=== PATIENT | female | born 1950 | race Caucasian/White ===

== ENCOUNTER → 2017-01-23 | Outpatient (CLI) | payer OTHER ==
[~2017-01-23] VITALS: Ht 162.6 cm; Wt 74.8 kg
[~2017-01-23] MED LIST: ASPIR-LOW81 MG PO; FOSAMAX 70 MG T70 MG PO; HYDROCODON-ACE1 EAC5 PO; LIPITOR 20 MG T20 M1 PO; LISINOPRIL5 MG PO; MYCOPHENOLATE500 MG PO; PREDNISONE 5 MG5 M1 PO; TACROLIMUS1 MG PO; TOPROL XL25 MG PO; XANAX 0.5 MG0.5 MG PO; ZOLOFT50 MG PO
--- NOTE | ~2017-01-23 | HPC ---
[facility] [place] [address] PAIN MANAGEMENT CONSULTATION Name: LEROY PHAM Marcela [facility] #: [facility] [id number] Admission: 01/23/17 Attend Phys: Darrel Lagos, DO Discharge: Date of : 50 Report #: [id number] THIS REPORT FOR: //name// CC: Dr. Rosalie Lagos The patient is a 66-year-old female seen in consultation at the request of Dr. Marmolejo for evaluation of pain in the low back, right buttock and leg, and has been present for the past 2-3 months. She denies specific antecedent trauma and/or overuse. Notes pain does seem to be exacerbated with increased physical activity. She has been helping her friend closed down his office, doing a lot of scanning and desk work involving rotation and modest lifting. She had similar symptoms in the past, had epidural injections x 2 in 2010 with good efficacy. Currently, notes little paresthesias in the right leg, no weakness, saddle anesthesia nor bowel or bladder continence changes. The patient cannot take nonsteroidal anti-inflammatory medications due to chronic renal failure, status post kidney transplant. She notes the pain is exacerbated with twisting and/or standing. Gets some relief with pain medications and ice. Takes rare hydrocodone. Has been doing physical therapy exercises and walking. Pain is continuous, shooting and stabbing, rates it at 7-10 on a visual analog scale. REVIEW OF SYSTEMS: Complete review of systems attached to chart and gone over with the patient. She is , does not smoke or drink alcohol to excess. History of hypertension, treated with metoprolol and lisinopril; idiopathic complete renal failure, status post renal transplant in 2003, has a kidney in the left lower abdominal quadrant. Dyslipidemia for which she takes statin type medication. Takes multiple agents for antirejection including prednisone. Takes rare Xanax and zolpidem for chronic anxiety. Tragically, the patient lost a son in a motor vehicle accident in 1994. She has worked diligently with [employer] for a number of years subsequent. The patient is retired. She notes pain impact score is fairly high, averaging about 39/70. PHYSICAL EXAMINATION: Shows a 5 feet 4 inches, 74 kilogram female, BMI is 28.3 kilograms per meter squared. Vital signs are stable. Cranial nerves 2-12 are grossly intact. Pupils equal, reactive to light and accommodation. Extraocular muscles are intact. Thyroid is unremarkable. Cervical range of motion is full. Upper extremity strength is preserved. Heart is regular and rhythmical without murmur. Lungs are clear to auscultation. Abdomen shows a modestly endomorphic build. Rises from chair using armrest, does have an antalgic gait. Lumbar [facility] [address] [place] [address] PAIN MANAGEMENT CONSULTATION Name: ANKITLEROY M Room #: REG Julia Ko#: [id number] Admission: 01/23/17 Attend Phys: Darrel Lagos DO Discharge: Date of : 50 Report #: [id number] flexion is good at 90 degrees. Positive straight leg raise on the right with slight decreased plantar flexion and lower extremity extension strength. Patellar reflex is diminished on the right compared to left. DIAGNOSTIC FINDINGS: Include lumbar spine x-rays from 01/11/2017, noting moderate arthritic changes of the lumbar spine, narrowing at L4-L5. ASSESSMENT: Symptomatic lumbar radiculopathy by clinical exam and history. RECOMMENDATIONS: Epidural injection under fluoroscopy today, nonsteroidal anti-inflammatory medications are contraindicated. Follow up in 3 weeks for reevaluation. Consider repeat epidural injection if indicated clinically. Thank you for allowing me to participate in this patient's care. PROCEDURE: Lumbar epidural injection under fluoroscopy. PROCEDURE NOTE: After both written and informed consent to include risk of spinal cord damage, increased pain, weakness and dural puncture, the patient was taken to the fluoroscopy suite, placed in the prone position. After sterile prep and drape, a skin wheal with lidocaine was raised. A 22-gauge epidural Tuohy needle was inserted in the midline at L5-S1 with good loss to resistance. Negative aspiration for cerebrospinal fluid or blood was noted. Then 1 mL of Omnipaque under biplanar fluoroscopy showed good spread within the epidural space. This was followed with 80 mg of triamcinolone plus 1 mL of 1.5% preservative-free Xylocaine, 0.5 mL Xylocaine was then injected to flush the needle; it was removed. The patient was monitored for an appropriate period of time and discharged in good and stable condition. <ELECTRONICALLY SIGNED> By: Darrel Lagos DO 01/30/17 1401 [id number] Darrel Lagos DO /nt
[2017-01-23 13:45] VITALS: BP 114/76
== END | disposition home or self-care (01) ==
LOC: PAIN 06:28
DX: M54.16 Radiculopathy, lumbar region (principal); I10 Essential (primary) hypertension; Z79.899 Other long term (current) drug therapy; Z94.0 Kidney transplant status; E78.5 Hyperlipidemia, unspecified; F41.9 Anxiety disorder, unspecified; Z90.710 Acquired absence of both cervix and uterus

== ENCOUNTER → 2017-02-13 | Outpatient (CLI) | payer OTHER ==
[~2017-02-13] VITALS: Ht 162.6 cm; Wt 77.1 kg
--- NOTE | ~2017-02-13 | HPC ---
[facility] [address] [address] [place] [address] PAIN MANAGEMENT CONSULTATION Name: LEROY PHAM Marcela Room #: REG [facility] [id number] Admission: 02/13/17 Attend Phys: Darrel Lagos DO Discharge: Date of : 50 Report #: [id number] THIS REPORT FOR: //name// CC: Rosalie Lagos HISTORY OF PRESENT ILLNESS: The patient is a 66-year-old female seen in consultation on 01/23/2017, diagnosed with symptomatic lumbar radiculopathy, comorbidity of chronic renal insufficiency, status post renal transplant, precluding use of nonsteroidal anti-inflammatory medication agents. The patient was given a single epidural injection at consultation, returns to pain clinic today noting 90% improvement of baseline pain, still notes pain in the right low back, buttock, and leg, exacerbated with activity. Dramatic improvement following injection, rates pain at 2 on VAS. Notes, the pain is exacerbated with twisting and getting up, still gets some relief with ice. She stopped taking hydrocodone. PHYSICAL EXAMINATION: Shows a pleasant 66-year-old female, BMI is 29.2 kg/m2. Vital signs are stable as noted in the EMR. Rises from chair using armrest. Diffuse tenderness across the low back, modestly antalgic gait, positive straight leg raise on the right, the symptoms are dramatically improved. ASSESSMENT: Symptomatic lumbar radiculopathy, dramatic improvement following 1 epidural injection. RECOMMENDATION: Repeat epidural injection under fluoroscopy today (L5-S1). I will not make a followup appointment, simply the patient will follow up on as needed basis. Thank you for allowing me to participate in the patient's care. PROCEDURE: Lumbar epidural injection under fluoroscopy. PROCEDURE NOTE: After both written and informed consent to include risk of spinal cord damage, increased pain, weakness and dural puncture, the patient was taken to the fluoroscopy suite, placed in the prone position. After sterile prep and drape, a skin wheal with lidocaine was raised. A 22-gauge epidural Tuohy needle was inserted in the midline at L5-S1 with good loss to resistance. Negative aspiration for cerebrospinal fluid or blood was noted. Then 1 mL of Omnipaque under biplanar fluoroscopy showed good spread within the epidural space. This was followed with 80 mg of triamcinolone plus 1 mL of 1.5% preservative-free Xylocaine, 0.5 mL Xylocaine was then injected to flush the [facility] [address] [place] [address] PAIN MANAGEMENT CONSULTATION Name: CARLOS AMarkLEROY Room #: REG [facility] [id number] Admission: 02/13/17 Attend Phys: Darrel Lagos DO Discharge: Date of : 50 Report #: [id number] needle; it was removed. The patient was monitored for an appropriate period of time and discharged in good and stable condition. <ELECTRONICALLY SIGNED> By: Darrel Lagos DO 02/15/17 0834 1220 1606 Darrel Lagos DO /del
[2017-02-13 10:43] VITALS: BP 145/81
== END | disposition home or self-care (01) ==
LOC: PAIN 06:06
DX: M54.16 Radiculopathy, lumbar region (principal); N18.9 Chronic kidney disease, unspecified; G89.29 Other chronic pain; Z94.0 Kidney transplant status; Z79.891 Long term (current) use of opiate analgesic; Z98.890 Other specified postprocedural states; Z88.6 Allergy status to analgesic agent; Z79.82 Long term (current) use of aspirin; Z79.899 Other long term (current) drug therapy

== ENCOUNTER → 2020-10-27 | Outpatient (CLI) | payer OTHER | LOC: SJCVC 10:33 | PROVIDERS: ATTEND Internal Medicine Cardiovascular Disease | DX: R06.00 Dyspnea, unspecified (principal); E78.00 Pure hypercholesterolemia, unspecified; I73.9 Peripheral vascular disease, unspecified; M19.90 Unspecified osteoarthritis, unspecified site; E78.5 Hyperlipidemia, unspecified; I12.9 Hypertensive chronic kidney disease with stage 1 through stage 4 chronic kidney disease, or unspecified chronic kidney disease; N18.30 Chronic kidney disease, stage 3 unspecified; Z94.0 Kidney transplant status; Z88.8 Allergy status to other drugs, medicaments and biological substances; Z79.82 Long term (current) use of aspirin; Z79.899 Other long term (current) drug therapy; Z87.891 Personal history of nicotine dependence ==